=== PATIENT | male | born 1965 | race Hispanic/Latino ===

== ENCOUNTER 2016-11-09 05:31 | Emergency (ER) | payer SELFPAY ==
[~2016-11-09] VITALS: Ht 172.7 cm; Wt 90.9 kg
[~2016-11-09 05:31] MED LIST: LOSA100T29 PO
[2016-11-09 05:44] VITALS: BP 169/105; PULSE 115; RESP 16; O2SAT 99
--- NOTE | 2016-11-09 06:09 | ED.REPORT ---
HPI-General Illness Date of Service Nov 09, 2016 ED Provider: Ratna Means MD Pt is a 51 y/o male w/ a hx of HTN, Hep C, presenting to the ED via EMS due to accidental heroin overdose prior to arrival. The patient's family found the pt down on the floor and unresponsive. They called EMS and began CPR by instruction. An aid truck was first to arrive and gave 2 mg Narcan. EMS arrived to find the patient fully awake, oriented, and ambulatory. He states that he does not typically use heroin, but his nephew recently and he was feeling down about this so he decided to drink some alcohol and use heroin last night. At time of interview, he has no complaints or concerns. Nursing Notes Stated Complaint: HEROIN OD Chief Complaint: Substance Abuse Nursing Notes Reviewed: Yes Allergies: Coded Allergies: naproxen sodium (Verified Allergy, Unknown, swelling, 11/09/16) Scheduled Losartan Potassium (Losartan Potassium) 100 Mg Tablet 100 MG PO DAILY General Time Seen by MD: 06:01 Chief Complaint Other (Heroin OD) Hx Obtained From: Patient Arrived By: Walk-in Sudden in Onset?: Yes Onset Occurred: Just prior to arrival Symptom Duration: Duration unknown Severity: Current: No pain currently Severity: Maximum: No pain Past Medical History Past Medical History Hep C Hypertension Past Surgical History Denies Smoking History Current Every Day Smoker Social History Heroin Alcohol Use: "Social" Drug Use: IV drugs Ambulatory Status Independent Review of Systems +heroin OD Full Review of Systems Cardiovascular: Denies: Chest pain Psychiatric: Reports: Depression, Stress Complete sys rev & neg: except as marked. Physical Exam Vital Signs Vital Signs Date Time Temp Pulse Resp B/P Pulse Ox O2 Delivery O2 Flow Rate FiO2 11/09/16 07:15 92 21 138/95 97 Room Air 11/09/16 05:44 36.6 115 16 169/105 99 Room Air Initial VS: Reviewed, Vital signs abnormal ENT: Mucous membranes moist, Conjunctiva normal, No scleral icterus Neck: Supple, Full range of motion Respiratory: Breath sounds normal, Clear to auscultation, No respiratory distress Cardiovascular: Regular rate & rhythm, Heart sounds normal, Intact distal pulses Abdomen / GI: Soft, Non-tender, No guarding, No rebound, No distention Extremities: Vascular intact, Neuro intact, No swelling, No tenderness General/Constitutional: Awake, Alert, No acute distress, Well appearing, Cooperative, Not toxic appearing Head / Eyes: Atraumatic, Normocephalic Pupils mildly injected Skin: Atraumatic, No rash, Warm, Dry, Intact Multiple tattoos Neurologic: Oriented X3, Speech NL, No motor deficits, No sensory deficits, CN II - XII intact, Memory NL Psychiatric: Affect NL, Mood NL, Not suicidal, Not homicidal, No hallucinations , Cognitive function NL Good eye contact Interpretation & Diagnostics ECG Interpretation ECG Interpretation: Sinus rhythm rate 98 Normal early repol pattern Time: 06:28 Interpreted by: ED physician Normal ECG Interpretation: No acute ischemic changes Re-Eval/Medical Decision Time of Eval: 06:17 Re-Evaluation/Progress Note: He is denying any blood work at this point and is feeling fine. I believe this is appropriate. Time of Eval: 08:07 Patient Status: Condition resolved, Complete relief Re-Evaluation/Progress Note: Pt rechecked. Informed pt of plan for treatment. Pt understands and agrees with plan for treatment. F/U and RTER warnings given. All questions addressed. Counseled Regarding: Diagnosis, Lab results, Need for follow-up, When/why to return to ED Discharge & Departure Primary Impression: Accidental overdose Encounter type: initial encounter Qualified Code: T50.901A - Poisoning by unspecified drugs, medicaments and biological substances, accidental ( unintentional), initial encounter Additional Impressions: Heroin use Alcohol intoxication Complication of substance-induced condition: uncomplicated Qualified Code: F10.120 - Alcohol abuse with intoxication, uncomplicated Disposition: Home Discharge Condition All VS Reviewed: Yes Condition: Stable Additional Instructions: Happy birthday! I am sorry that this happened to you. I would like you to meet with a primary care doctor to discuss this visit and your hypertension. Dr. Kristan Zurita would be happy to see you. Please call her office today to schedule an appointment. Return to the emergency department if you have any thoughts of harming yourself or others, if you have trouble breathing, profound weakness, or for other concerning signs or symptoms. I have given you a narcan kit to have at home. This is to use if you are concerns about a heroin overdose. If you are interested in getting help with heroin addiction, consider calling [facility]. Referrals: Kristan Zurita MD Scribe Attestation Portions of this note were transcribed by Grady Estrada. I, Dr. Means personally performed the history, physical exam and medical decision-making; I reviewed and confirmed the accuracy of the information in the transcribed note. Signed by Marce Salazar, 11/09/16629 Ratna Means MD Nov 09, 2016 06:09 GRADY ESTRADA Nov 09, 2016 06:12
[2016-11-09 07:15] VITALS: BP 138/95; PULSE 92; RESP 21; O2SAT 97
[2016-11-09] MEDS ORDERED: _Naloxone 2 mg/2 mL 2 Syringe Kit (NASAL USE) NASAL PRN (08:30)
== END 2016-11-09 09:06 | disposition home or self-care (01) ==
LOC: SED 05:31 → EDBD 05:31 → SED 09:06
DX: T40.1X1A Poisoning by heroin, accidental (unintentional), initial encounter (principal); Y93.89 Activity, other specified; Y92.89 Other specified places as the place of occurrence of the external cause; Y99.8 Other external cause status; F11.90 Opioid use, unspecified, uncomplicated; F10.120 Alcohol abuse with intoxication, uncomplicated; I10 Essential (primary) hypertension; F17.200 Nicotine dependence, unspecified, uncomplicated; Z88.8 Allergy status to other drugs, medicaments and biological substances